=== PATIENT | female | born 1970 | race Caucasian/White ===

== ENCOUNTER 2020-01-16 08:56 | Emergency (ER) | payer MEDICAID ==
[~2020-01-16] VITALS: Ht 165.1 cm; Wt 116.6 kg
[2020-01-16 09:01] VITALS: BP 197/95; Ht 165.1 cm; Wt 116.6 kg
== END 2020-01-16 11:06 | disposition home or self-care (01) ==
LOC: ED 08:56
DX: J06.9 Acute upper respiratory infection, unspecified (principal); I10 Essential (primary) hypertension
CPT/HCPCS: Q0092